=== PATIENT | female | born 1960 | race Caucasian/White ===

== ENCOUNTER 2018-03-27 01:32 | Emergency (ER) | payer BC ==
[2018-03-27] MEDS ORDERED: Ciprofloxacin 500 MG Tab PO ONE (01:33)
[2018-03-27] MEDS ORDERED: Ketorolac 10 MG Tab PO ONE (01:33)
[2018-03-27] MEDS ORDERED: Ketorolac 60 MG/2 ML SDV IM ONE (01:47)
--- NOTE | 2018-03-27 02:37 | EDM.PDOC ---
ED HPI GENERAL MEDICAL PROBLEM - General Chief Complaint: Genitourinary Problem Stated Complaint: POSS KIDNEY STONE Time Seen by Provider: 03/27/18 02:35 Source of Information: Reports: Patient History Limitations: Reports: No Limitations - History of Present Illness INITIAL COMMENTS - FREE TEXT/NARRATIVE: Sudden onset rt flank pain. Severe. Radiation to the pelvic area. No urinary symptoms.Previously healthy - Related Data Allergies Allergy/AdvReac Type Severity Reaction Status Date / Time No Known Allergies Allergy Verified 03/27/18 01:49 Home Meds: Home Meds NK [No Known Home Meds] 03/27/18 [History] Past Medical History - Past Surgical History Female Surgical History: Reports: Section Musculoskeletal Surgical History: Reports: Carpal Tunnel Social & Family History - Tobacco Use Smoking Status *Q: Former Smoker Years of Tobacco use: 30 Used Tobacco, but Quit: No Tobacco Use Comment: Patient states she quit smoking about 2 months ago. ED ROS GENERAL - Review of Systems Review Of Systems: ROS reveals no pertinent complaints other than HPI. ED EXAM, RENAL/ - Physical Exam Exam: See Below Exam Limited By: No Limitations General Appearance: Alert, WD/WN Ears: Normal External Exam Throat/Mouth: Normal Inspection Respiratory/Chest: No Respiratory Distress Cardiovascular: Normal Peripheral Pulses, Regular Rate, Rhythm GI/Abdominal: Normal Bowel Sounds, No Distention, No Mass, Tender (Rt CVA). No : Distended, Guarding, Rigid, Rebound, Hepatomegaly, Splenomegaly Rectal (Female) Exam: Deferred Course - Vital Signs Last Recorded V/S: Last Vital Signs Temp 97.9 F 03/27/18 01:45 Pulse 79 03/27/18 01:45 Resp 16 03/27/18 01:45 BP 129/79 03/27/18 01:45 Pulse Ox 98 03/27/18 01:45 - Orders/Labs/Meds Orders: Active Orders 24 hr Category Date Time Status Abdomen Pelvis wo Cont [CT] Stat Exams 03/27/18 02:33 Taken CULTURE URINE [RM] Stat Lab 03/27/18 01:40 Received Labs: Laboratory Tests 03/27/18 03/27/18 03/27/18 Range/Units 01:40 02:00 02:00 WBC 5.9 (4.5-12.0) X10-3/uL RBC 4.18 (3.23-5.20) x10(6)uL Hgb 12.7 (11.5-15.5) g/dL Hct 37.6 (30.0-51.3) % MCV 89.8 (80-96) fL MCH 30.4 (27.7-33.6) pg MCHC 33.8 (32.2-35.4) g/dL RDW 12.7 (11.5-15.5) % Plt Count 223 (125-369) X10(3)uL MPV 8.5 (7.4-10.4) fL Neut % (Auto) 64.6 (46-82) % Lymph % (Auto) 26.8 (13-37) % [place] % (Auto) 5.9 (4-12) % Eos % (Auto) 2 (1.0-5.0) % Baso % (Auto) 1 (0-2) % Neut # (Auto) 3.9 (1.6-8.3) # Lymph # (Auto) 1.6 (0.6-5.0) # [place] # (Auto) 0.3 (0.0-1.3) # Eos # (Auto) 0.1 (0.0-0.8) # Baso # (Auto) 0.0 (0.0-0.2) # Sodium 141 (135-145) mmol/L Potassium 4.0 (3.5-5.3) mmol/L Chloride 105 (100-110) mmol/L Carbon Dioxide 28 (21-32) mmol/L BUN 17 (7-18) mg/dL Creatinine 0.8 (0.55-1.02) mg/dL Est Cr Clr Drug Dosing 77.27 mL/min Estimated GFR (MDRD) > 60 (>60) BUN/Creatinine Ratio 21.3 H (9-20) Glucose 105 (80-116) mg/dL Calcium 8.8 (8.6-10.2) mg/dL Total Bilirubin 0.4 (0.1-1.3) mg/dL AST 11 (5-25) IU/L ALT 6 L (12-36) U/L Alkaline Phosphatase 63 (56-112) IU/L Total Protein 7.1 (6.0-8.0) g/dL Albumin 3.9 (3.5-5.2) g/dL Globulin 3.2 g/dL Albumin/Globulin Ratio 1.2 Urine Color Yellow (YELLOW) Urine Appearance Slightly cloudy (CLEAR) Urine pH 6.0 (5.0-6.5) Ur Specific [place] 1.030 H (1.010-1.025) Urine Protein Trace (NEGATIVE) mg/dL Urine Glucose (UA) Normal (NEGATIVE) mg/dL Urine Ketones Negative (NEGATIVE) mg/dL Urine Occult Blood Moderate H (NEGATIVE) Urine Nitrite Negative (NEGATIVE) Urine Bilirubin Negative (NEGATIVE) Urine Urobilinogen Normal (NEGATIVE) mg/dL Ur Leukocyte Esterase Moderate H (NEGATIVE) Urine RBC 5-10 (0) Urine WBC 10-20 H (0) Ur Squamous Epith Cells Occasional (NS,R,O) Urine Bacteria Few H (NS) Meds: Medications Discontinued Medications Generic Name Dose Route Start Last Admin Trade Name Freq PRN Reason Stop Dose Admin Ketorolac Tromethamine 60 mg 03/27/18 01:47 03/27/18 01:54 Toradol IM 03/27/18 01:48 60 mg ONETIME ONE Administration Departure - Departure Time of Disposition: 03:27 Disposition: Home, Self-Care 01 Condition: Good Clinical Impression: UTI, Urinary tract infectious disease - Discharge Information Instructions: Kidney Stones, [id number], Ciprofloxacin tablets Referrals: Dolores Galvan [employer] [Primary Care Provider] - Forms: ED Department Discharge - Problem List & Annotations (1) Ureteral calculi SNOMED Code(s): 33524611 Code(s): N20.1 - CALCULUS OF URETER Status: Acute Current Visit: Yes (2) Hydronephrosis SNOMED Code(s): 31338406 Code(s): N13.30 - UNSPECIFIED HYDRONEPHROSIS Status: Acute Current Visit : Yes Qualifiers: Hydronephrosis type: with renal calculous obstruction Qualified Code(s): N13.2 - Hydronephrosis with renal and ureteral calculous obstruction - Problem List Review Problem List Initiated/Reviewed/Updated: Yes - My Orders Last 24 Hours: My Active Orders 03/27/18 01:40 CULTURE URINE [RM] Stat 03/27/18 02:33 Abdomen Pelvis wo Cont [CT] Stat - Assessment/Plan Last 24 Hours: My Active Orders 03/27/18 01:40 CULTURE URINE [RM] Stat 03/27/18 02:33 Abdomen Pelvis wo Cont [CT] Stat Plan: CT showed 2 mm stone,some hydronephrosis .Toradol 60 mg IM helped symptoms significantly. I will discharge home on oral Cipro,toradol. Follow up with Jacky Zurita on .Return with any systemic symptoms ie fever,vomiting etc
== END 2018-03-27 03:45 | disposition home or self-care (01) ==
LOC: FB.ED 01:32
DX: N39.0 Urinary tract infection, site not specified (principal); Z87.891 Personal history of nicotine dependence
CPT/HCPCS: 36415; 74176; 80053; 81001; 85025; 87086; 96372; 99284; J1885; A9270-GY